=== PATIENT | female | born 1985 | race Caucasian/White ===

== ENCOUNTER 2022-02-09 09:57 | Emergency (ER) | payer OTHER ==
[2022-02-09 10:30] LABS: HEMOGLOBIN 14.4 gm/dl (12.3-15.3); RED BLOOD COUNT 4.74 M/UL (4.00-5.10); WHITE BLOOD COUNT 7.3 K/UL (4.5-11.0)
[2022-02-09 11:09] LABS: BUN/CREATININE RATIO 21 (0-10)
== END 2022-02-09 14:33 | disposition home or self-care (01) ==
LOC: ER1 09:57
PROVIDERS: Physician Assistant
DX: R07.9 Chest pain, unspecified (principal); Z20.822 Contact with and (suspected) exposure to COVID-19; I11.0 Hypertensive heart disease with heart failure; I50.9 Heart failure, unspecified; J44.9 Chronic obstructive pulmonary disease, unspecified; F17.210 Nicotine dependence, cigarettes, uncomplicated
CPT/HCPCS: 71045; 80053; 81001; 82550; 82553; 83605; 84484; 84703; 85025; 85379; 93005; 99285; U0002

== ENCOUNTER 2022-02-27 09:36 | Emergency (ER) | payer OTHER ==
[2022-02-27 11:10] LABS: HEMOGLOBIN 14.3 gm/dl (12.3-15.3); RED BLOOD COUNT 4.71 M/UL (4.00-5.10)
[2022-02-27 11:59] LABS: BUN/CREATININE RATIO 25 (0-10)
== END 2022-02-27 14:00 | disposition home or self-care (01) ==
LOC: ER1 09:36
PROVIDERS: Emergency Medicine
DX: R07.89 Other chest pain (principal); I10 Essential (primary) hypertension; I25.2 Old myocardial infarction; Z79.82 Long term (current) use of aspirin
CPT/HCPCS: 71045; 80053; 81001; 82550; 82553; 84484; 85025; 93005; 99285